=== PATIENT | male | born 1990 | race Caucasian/White ===

== ENCOUNTER 2020-06-04 00:40 | Emergency (ER) | payer OTHER ==
[~2020-06-04] VITALS: Ht 195.6 cm; Wt 136.1 kg
[~2020-06-04 00:40] MED LIST: ALBU90OI INH; ALBU90OI61 INH; AMOX500 PO; ATOR10; AZIT250 PO; CEPH500 PO; CHLGLU.12S MT; CODGUAEL PO; CYCL10 PO; DOXY100 PO; ERYT500 PO; FLUT110OIA IH; HYDACE5 PO; HYDACE5325 PO; IBUP800 PO; KETO15TC TP; LISI5 PO; METF500 PO; METO50ER; NAPR550 PO; NEOPOLHCSU AS; OLME20 PO; OXYACE5T PO; PENVK500 PO; RXCLIN PO; RXHYDACE PO; RXNAPNA550 PO; SIMV10 PO; SIMV20 PO; SULTRIDS PO; TRAM50 PO
[2020-06-04] MEDS ORDERED: GABAPENTIN600 MG PO (00:56)
[2020-06-04] MEDS ORDERED: CYCL10 PO (00:57)
[2020-06-04] MEDS ORDERED: AMIT10 PO (00:58)
[2020-06-04 02:56] LABS: BASOPHILS ABSOLUTE AUTO 0.04 K/mm3 (0.00-0.23); BASOPHILS PERCENT AUTO 0 % (0-2); EOSINOPHILS ABSOLUTE AUTO 0.08 K/mm3 (0.00-0.68); EOSINOPHILS PERCENT AUTO 1 % (0-6); Hematocrit 44.8 % (37.0-53.0); Hemoglobin 14.2 g/dL (13.5-17.5); IMMATURE GRAN ABSOLUTE AUTO 0.02 K/mm3 (0.00-0.10); IMMATURE GRAN PERCENT AUTO 0 % (0-1); LYMPHOCYTES ABSOLUTE AUTO 1.78 K/mm3 (0.84-5.20); LYMPHOCYTES PERCENT AUTO 18 % (21-46); MONOCYTES ABSOLUTE AUTO 0.71 K/mm3 (0.16-1.47); MONOCYTES PERCENT AUTO 7 % (4-13); Mean Corpuscular HGB 27.6 pg (26.0-34.0); Mean Corpuscular HGB Conc 31.7 g/dL (31.5-36.5); Mean Corpuscular Volume 87 fL (80-100); Mean Platelet Volume 11.1 fL (9.1-12.4); NEUTROPHILS ABSOLUTE AUTO 7.17 K/mm3 (1.96-9.15); NEUTROPHILS PERCENT AUTO 73 % (41-73); Platelet Count 272 K/mm3 (150-400); RDW Coefficient Variation 13.9 % (11.7-14.2); RDW Standard Deviation 44.4 fL (35.1-46.3); Red Blood Cell Count 5.15 M/mm3 (4.30-5.90)
[2020-06-04 03:01] LABS: Source, Urine Clean Catch
[2020-06-04 03:08] LABS: Bilirubin, Urine Neg (Neg); Blood, Urine 3+ (Neg); Glucose Qualitative, Urine 4+ (Neg); Ketones, Urine 1+ (Neg); Leukocyte Esterase, Urine 2+ (Neg); Nitrite, Urine Pos (Neg); Protein, Urine 2+ (Neg); Specific Gravity, Urine 1.025 (1.003-1.022); Urobilinogen, Urine 2+ (Normal)
[2020-06-04 03:11] LABS: Appearance, Urine Hazy (Clear); Color, Urine Yellow (P-Yellow)
[2020-06-04 03:13] LABS: Red Blood Cells, Urine 0-2 /hpf (0-2); White Blood Cells, Urine TNTC /hpf (0-5)
[2020-06-04 03:14] LABS: Amorphous Light (0-Heavy); Bacteria Mod /hpf; Mucus Light (0-Heavy); Squamous Epithelial Cells Not Seen /hpf (Few)
[2020-06-04 03:26] LABS: Alanine Aminotransfer (ALT/SGP 38 U/L (12-78); Albumin, Blood 3.8 g/dL (3.4-5.0); Albumin/Globulin Ratio 0.9 (0.8-1.8); Alk Phos 114 U/L (50-136); Anion Gap 3 mmol/L (6-16); Aspartate Aminotrans (AST/SGOT 21 U/L (12-37); Bilirubin, Total 0.4 mg/dL (0.1-1.0); Blood Urea Nitrogen 10 mg/dL (8-24); Bun/Creatinine Ratio 15.9 (12.0-20.0); CO2, Blood 27 mmol/L (21-32); Calcium, Blood 9.4 mg/dL (8.5-10.1); Chloride, Blood 108 mmol/L (98-108); Creatinine, Blood 0.63 mg/dL (0.60-1.20); Globulin, Blood 4.3 g/dL (2.2-4.0); Glomerular Filtration Rate >60 (60-); Glucose, Blood 212 mg/dL (70-99); Magnesium, Blood 2.3 mg/dL (1.6-2.4); Potassium, Blood 4.5 mmol/L (3.5-5.5); Sodium, Blood 138 mmol/L (136-145); Total Protein, Blood 8.1 g/dL (6.4-8.2)
[2020-06-04] MEDS ORDERED: Cipro500 MG PO (05:18)
[2020-06-04] MEDS ORDERED: ACETAMINOPHEN500 MG PO (05:20)
[2020-06-04] MEDS ORDERED: LIDO700A20 TOP (05:20)
[2020-06-04] MEDS ORDERED: IBUP600 PO (05:20)
[2020-06-04] MEDS ORDERED: Valium5 MG PO (05:20)
[2020-06-08] MEDS ORDERED: Atarax10 MG PO (16:02)
== END 2020-06-04 05:37 | disposition home or self-care (01) ==
LOC: ER 00:40
PROVIDERS: Emergency Medicine
DX: N39.0 Urinary tract infection, site not specified (principal); I10 Essential (primary) hypertension; E11.9 Type 2 diabetes mellitus without complications; J45.909 Unspecified asthma, uncomplicated; E78.00 Pure hypercholesterolemia, unspecified; Z79.899 Other long term (current) drug therapy
CPT/HCPCS: 36415; 74176; 80053; 81001; 83735; 85025; 87077; 87086; 87186; 96365; 99284-25; A9270; A9270-GY; J0696

== ENCOUNTER 2020-06-07 00:29 | Emergency (ER) | payer OTHER ==
[~2020-06-07] VITALS: Ht 195.6 cm; Wt 136.1 kg
[~2020-06-07 00:29] MED LIST changes: +ACETAMINOPHEN500 MG PO; +AMIT10 PO; +Cipro500 MG PO; +GABAPENTIN600 MG PO; +IBUP600 PO; +LIDO700A20 TOP; +Valium5 MG PO
[2020-06-07] MEDS ORDERED: Prednisone20 MG PO (00:38)
[2020-06-08] MEDS ORDERED: Atarax10 MG PO (16:02)
== END 2020-06-07 01:26 | disposition home or self-care (01) ==
LOC: ER 00:29
DX: M54.31 Sciatica, right side (principal); M54.32 Sciatica, left side; I10 Essential (primary) hypertension; E11.9 Type 2 diabetes mellitus without complications; E78.5 Hyperlipidemia, unspecified; J45.909 Unspecified asthma, uncomplicated; Z79.52 Long term (current) use of systemic steroids; Z79.899 Other long term (current) drug therapy
CPT/HCPCS: 96372; 99283-25; J1885; J7512